=== PATIENT | female | born 1990 | race Two or more races ===

== ENCOUNTER 2023-01-01 09:42 | Inpatient (IN) | payer OTHER ==
[~2023-01-01] VITALS: Ht 167.6 cm; Wt 2.7 kg
== END 2023-01-05 15:05 | disposition home or self-care (01) | DRG 788 ==
LOC: LDR 12:26 → O/R 01-02 20:30 → OB/GYN 01-02 21:22
PROVIDERS: Obstetrics & Gynecology; ADMIT Obstetrics & Gynecology Maternal & Fetal Medicine; ATTEND Obstetrics & Gynecology Maternal & Fetal Medicine
PROC: 4A1HXCZ Monitoring of Products of Conception, Cardiac Rate, External Approach (ICD-10-PCS; 2023-01-01)
PROC: 10D00Z1 Extraction of Products of Conception, Low, Open Approach (ICD-10-PCS; principal; 2023-01-02 18:45)
DX: O60.14X0 Preterm labor third trimester with preterm delivery third trimester, not applicable or unspecified (principal); O33.8 Maternal care for disproportion of other origin; Z3A.36 36 weeks gestation of pregnancy; Z37.0 Single live birth; Z20.822 Contact with and (suspected) exposure to COVID-19